=== PATIENT | female | born 1945 | race Caucasian/White ===

== ENCOUNTER 2017-07-28 14:34 | Emergency (ER) | payer OTHER, MEDICARE ==
[2017-07-28 14:59] VITALS: BP 154/81; PULSE 87; TEMP 97.4; BMI 35.6
[2017-07-28] MEDS ORDERED: ACETAMINOPHEN 325 MG TABLET (FP) PO ONE (17:15)
--- NOTE | 2017-07-28 17:15 | PDOC ---
History of Present Illness - History of Present Illness Initial Comments: 07/28/17 18:36 "Patient is a 72 F, with PMHx of narcolepsy, HLD, lymphedema, acid reflux, anxiety, who presents s/p fall. Patient states that as she was getting onto the train she slipped in a puddle on the platform landing on her behind. She states that when she landed her left leg was bent at the knee and her right leg became stuck between the platform and train. She reports left knee pain, back pain, b/l shoulder pain, and left foot pain. She denies hitting head or loss of consciousness. She denies numbness or tingling. She denies neck, hip, or ankle pain. She states she was fine prior to the fall, denies chest pain, fever chills, shortness of breath, cough, or abdominal pain. " <Ines Matehws - Last Filed: 07/28/17 18:36> <Zeyad Montalvo - Last Filed: 07/28/17 19:29> - General Chief Complaint: Injury Stated Complaint: FALL Time Seen by Provider: 07/28/17 15:31 Past History <Ines Mathews - Last Filed: 07/28/17 18:36> - Past Medical History COPD: No GI Disorders: Yes (GERD) Other medical history: lymphedema, restless leg syndrome, osteomyelitis, MRSA - Suicide/Smoking/Psychosocial Hx Smoking History: Never smoked Have you smoked in the past 12 months: No Information on smoking cessation initiated: No Hx Alcohol Use: No Drug/Substance Use Hx: No Substance Use Type: None <Zeyad Montalvo - Last Filed: 07/28/17 19:29> - Past Medical History Allergies/Adverse Reactions: Allergies Allergy/AdvReac Type Severity Reaction Status Date / Time No Known Allergies Allergy Verified 07/28/17 15:55 Home Medications: Ambulatory Orders Armodafinil 250 mg PO DAILY 07/28/17 Buspirone HCl [Buspar -] 20 mg PO BID 07/28/17 Cetirizine HCl [Wal-Zyr] 10 mg PO HS 07/28/17 Doxycycline Hyclate [Vibramycin -] 50 mg PO ONCE 07/28/17 Famotidine [Pepcid] 10 mg PO HS 07/28/17 Fenofibrate Nanocrystallized [Fenofibrate] 145 mg PO DAILY 07/28/17 Furosemide [Lasix -] 40 mg PO DAILY 07/28/17 Montelukast Sodium [Singulair] 10 mg PO DAILY 07/28/17 Omeprazole 40 mg PO DAILY 07/28/17 Pramipexole Dihydrochloride [Mirapex -] 0.5 mg PO TID 07/28/17 Ranitidine HCl [Zantac] 150 mg PO DAILY 07/28/17 Valacyclovir HCl [Valtrex] 1,000 mg PO DAILY PRN 07/28/17 Review of Systems - Review of Systems Comments:: 07/28/17 18:37 CONSTITUTIONAL: No reported: Fever, Chills, Diaphoresis, Generalized Weakness, Malaise, Loss of Appetite HEENT: No reported: Rhinorrhea, Nasal Congestion, Throat Pain, Throat Swelling, Difficulty Swallowing, Mouth Swelling, Ear Pain, Eye Pain, Visual Changes CARDIOVASCULAR: No reported: Chest Pain, Syncope, Palpitations, Irregular Heart Rate, Lightheadedness, Peripheral Edema RESPIRATORY: No reported: Cough, Shortness of Breath, SOB with Exertion, Orthopnea, Wheezing , Stridor, Hemoptysis GASTROINTESTINAL: No reported: Abdominal pain, Abdominal Distension, Nausea, Vomiting, Diarrhea, Constipation, Melena, Hematochezia GENITOURINARY: No reported: Dysuria, Frequency, Urgency, Hesitancy, Flank Pain, Genital Pain MUSCULOSKELETAL: Reported: left paraspinal tenderness, left knee pain, b/l shoulder pain, left foot pain No reported: Arthralgia, Joint Swelling, Neck Pain SKIN: No reported: Rash, Itching, Pallor HEMEATOLOGIC/IMMUNOLOGIC: Reported: LE lymphadenopathy (chronic) No reported: Easy Bleeding, Easy Bruising, Frequent infections ENDOCRINE: No reported: Unexplained Weight Gain, Unexplained Weight Loss, Heat Intolerance , Cold Intolerance NEUROLOGIC: No reported: Headache, Focal Weakness, Paresthesias, Vertigo, Lightheadedness, Unsteady Gait, Seizure, Mental Status Changes, Incontinence PSYCHIATRIC: No reported: Anxiety, Depression <Ines Mathews - Last Filed: 07/28/17 18:36> *Physical Exam - Vital Signs Last Vital Signs Temp Pulse Resp BP Pulse Ox 97.4 F L 87 20 154/81 100 07/28/17 14:46 07/28/17 14:46 07/28/17 14:46 07/28/17 14:46 07/28/17 14:46 - Physical Exam Comments: 07/28/17 18:37 "GENERAL: The patient is awake, alert, and fully oriented, Nontoxic - in no acute distress. HEAD: Normocephalic, atraumatic. EYES: extraocular movements intact, sclera anicteric, conjunctiva clear. ENT: Normal voice, Moist mucous membranes. NECK: Normal range of motion, supple LUNGS: Breath sounds equal, clear to auscultation bilaterally. No wheezes, no rhonchi, no rales. HEART: Regular rate and rhythm, without murmur, rub or gallop. ABDOMEN: Soft, nontender, No guarding, no rebound.No CVA tenderness BACK: Left parspinal tenderness EXTREMITIES: Left lateral knee tenderness to palpation. B/L LE edema. Normal range of motion of upper and lower extremities beside L knee which exacerbates her pain. No cyanosis. No erythema. Pulses symmetric throughout, Sensation symmetric throughout. NEUROLOGICAL: No facial asymmetry, Normal speech. PSYCH: Normal mood, normal affect. SKIN: Warm, Dry, normal turgor" <Ines Mathews - Last Filed: 07/28/17 18:36> - Vital Signs Last Vital Signs Temp Pulse Resp BP Pulse Ox 97.4 F L 87 20 154/81 100 07/28/17 14:46 07/28/17 14:46 07/28/17 14:46 07/28/17 14:46 07/28/17 14:46 <Zeyad Montalvo - Last Filed: 07/28/17 19:29> ED Treatment Course - Medications Given in the ED: ED Medications Discontinued Medications Generic Name Dose Route Start Last Admin Trade Name Freq PRN Reason Stop Dose Admin Acetaminophen 650 mg 07/28/17 17:15 07/28/17 17:35 Tylenol - PO 07/28/17 17:16 650 mg ONCE ONE Administration <Ines Mathews - Last Filed: 07/28/17 18:36> - RADIOLOGY Radiology Studies Ordered: Category Date Time Status KNEE 3 POS-LEFT [RAD] Stat Radiology 07/28/17 17:12 Ordered <Zeyad Montalvo - Last Filed: 07/28/17 19:29> Medical Decision Making - Medical Decision Making 07/28/17 17:15 r/o fx sp mechcnial slip and fall at th3e train station tylenol for pain 07/28/17 18:57 knee xray snegative will dc the pt with pmd fu I discussed the physical exam findings, ancillary test results and final diagnoses with the patient. I answered all of the patient's questions. The patient was satisfied with the care received and felt comfortable with the discharge plan and treatment plan. The patient will call their primary care physician within 24 hours to arrange follow-up and will return to the Emergency Department with any new, persistent or worsening symptoms. A portion of this note was documented by scribe services under my direction. I have reviewed the details of the note, within reason, and agree with the documentation with the following case summary and management plan written by me 07/28/17 19:29 pt still in pain. pt placed kyle knee immobilizer and attempted to ambulate th pt but she is still very sore will give her a percocet and wlil raessess <Zeyad Montalvo - Last Filed: 07/28/17 19:29> *DC/Admit/Observation/Transfer - Attestations Scribe Attestion: 07/28/17 18:38 Documentation prepared by Ines Mathews, acting as curator medical museum for Zeyad Montalvo MD. <Ines Mathews - Last Filed: 07/28/17 18:36> - Discharge Dispostion Decision to Admit order: No <Zeyad Montalvo - Last Filed: 07/28/17 19:29> Diagnosis at time of Disposition: Knee pain, left Qualifiers: Chronicity: acute Qualified Code(s): M25.562 - Pain in left knee Fall Qualifiers: Encounter type: initial encounter Qualified Code(s): W19.XXXA - Unspecified fall, initial encounter - Discharge Dispostion Disposition: HOME Condition at time of disposition: Improved - Referrals Referrals: ON STAFF,NOT [Primary Care Provider] - - Patient Instructions Printed Discharge Instructions: DI for Knee Pain Additional Instructions: Return to the emergency department immediately with ANY new, persistent or worsening symptoms. You MUST call and follow up with your doctor tomorrow for further evaluation of your symptoms. Results were discussed with you. Please make sure your doctor reviews the results of your emergency evaluation. If you had any xrays during your visit, it was read preliminarily by myself, a Radiologist will review it and if there are any additional findings we will call you. Print Language: CZECH - Post Discharge Activity
[2017-07-28] MEDS ORDERED: ACETAMINOPHEN 325 MG TABLET (FP) ONE (17:37)
== END 2017-07-28 20:29 | disposition home or self-care (01) ==
LOC: JER 14:34
DX: W01.198A Fall on same level from slipping, tripping and stumbling with subsequent striking against other object, initial encounter (principal); Y93.01 Activity, walking, marching and hiking; Y92.522 Railway station as the place of occurrence of the external cause; Y99.8 Other external cause status
CPT/HCPCS: 73562-TC-LT-FY; 99282-25